=== PATIENT | male | born 1985 | race Caucasian/White ===

== ENCOUNTER 2016-03-30 15:43 | Emergency (ER) | payer SELFPAY ==
[~2016-03-30] VITALS: Ht 190.5 cm; Wt 86.2 kg
[2016-03-30 15:55] VITALS: BP 141/84
[2016-03-30] MEDS ORDERED: KETOROLAC TROMETH 60MG/2ML VIAL IM ONE (17:30)
== END 2016-03-30 18:41 | disposition home or self-care (01) ==
LOC: ER 15:47
DX: S29.012A Strain of muscle and tendon of back wall of thorax, initial encounter (principal); Z88.0 Allergy status to penicillin; V49.49XA Driver injured in collision with other motor vehicles in traffic accident, initial encounter; Y93.89 Activity, other specified; Y99.8 Other external cause status; Y92.410 Unspecified street and highway as the place of occurrence of the external cause
CPT/HCPCS: 72070; 96372; 99284; J1885